=== PATIENT | male | born 1960 | race Caucasian/White ===

== ENCOUNTER 2023-07-25 15:23 | Emergency (ER) | payer MEDICARE, BC ==
[2023-07-25] MEDS ORDERED: Sodium Chloride 0.9% 1000 ML 1,000 ML IV STA (15:24)
[2023-07-25 15:33] VITALS: TEMP 97.5
[2023-07-25] MEDS ORDERED: Adacel Vial IM ONE ×2 (15:41→16:11)
[2023-07-25 15:45] LABS: Absolute Neutrophil Ct (ANC) 5.52 x10^3/uL (1.4-6.9); BASOPHIL % 0.4 % (0.0-0.4); Basophil (Absolute #) 0.03 x10^3/uL (0-0.4); Eosinophil % 0.5 % (0.00-5.0); Eosinophil (Absolute #) 0.04 x10^3/uL (0-0.5); Hematocrit 45.3 % (42-50); Hemoglobin 14.9 g/dL (12.5-18.0); IMMATURE GRAN # 0.03 x10^3u/L (0.00-0.03); IMMATURE GRAN % 0.4 % (0.00-0.4); Lymphocyte (Absolute #) 1.13 x10^3/uL (1.0-4.6); Lymphocytes % 15.4 % (24.0-44.0); Mean Cell Volume 85.2 fL (78-100); Mean Corpuscular Hgb Concent. 32.9 g/dL (32-36); Mean Platelet Volume 10.9 fL (7.5-11.0); Monocytes % 8.2 % (0.0-12.0); Neutrophil % 75.1 % (36.0-66.0); Platelet Count 178 x10^3/uL (150-450); Red Blood Count 5.32 x10^6/uL (4.1-5.6); Red Cell Distribution Width 13.6 % (11.5-14.0); White Blood Count 7.4 x10^3/uL (4.0-10.5)
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
[2023-07-25 15:59] LABS: ALBUMIN 4.4 g/dL (3.5-5.0); ANION GAP 16.7 MEQ/L (5-15); BILIRUBIN,TOTAL 0.6 mg/dL (0.2-1.3); Calcium 8.8 mg/dL (8.4-10.2); Creatinine 1 1.47 mg/dL (0.66-1.25); EST GLOMERULAR FILTRATION RATE 51.3 ML/MIN; Potassium 4.1 mmol/L (3.5-5.1); Total Protein 7.4 g/dL (6.3-8.2)
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
[2023-07-25 17:20] LABS: Appearance Clear (Clear); Bacteria None Seen /HPF (None Seen); Bilirubin Negative (Negative); Blood Negative (Negative); Epithelial Cells None Seen /HPF (None Seen); Glucose, Urine >=1000 mg/dL (Negative); Hyaline Casts NONE SEEN /LPF (0-2); Ketones Trace (Negative); Leukocyte Esterase Negative (Negative); Nitrite Negative (Negative); Protein,Urine Dip Negative (Negative); RBC 0-2 /HPF (0-5); Specific Gravity 1.025 (1.005-1.030); Urobilinogen 0.2 mg/dL (0.2); WBC 0-2 /HPF (0-5)
[2023-07-25 17:21] LABS: ADD URINE CULTURE? NO (NO)
[2023-07-25 20:05] VITALS: O2SAT 96
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
[2023-07-25 20:13] VITALS: BP 130/76; PULSE 108; RESP 18
== END 2023-07-25 20:24 | disposition home or self-care (01) ==
LOC: ED 15:23
DX: S30.1XXA Contusion of abdominal wall, initial encounter (principal); S30.0XXA Contusion of lower back and pelvis, initial encounter; S50.11XA Contusion of right forearm, initial encounter; V87.7XXA Person injured in collision between other specified motor vehicles (traffic), initial encounter; Y92.413 State road as the place of occurrence of the external cause; K76.89 Other specified diseases of liver; R94.4 Abnormal results of kidney function studies; E11.9 Type 2 diabetes mellitus without complications; E78.5 Hyperlipidemia, unspecified; I10 Essential (primary) hypertension; Z79.84 Long term (current) use of oral hypoglycemic drugs; Z79.899 Other long term (current) drug therapy
CPT/HCPCS: 36415; 73090; 74176; 76376; 80053; 81001; 82150; 83605; 83690; 85025; 90471; 90715; 99285